=== PATIENT | female | born 1980 | race Hispanic/Latino ===

== ENCOUNTER 2018-06-06 05:36 | Emergency (ER) | payer BC ==
[2018-06-06] MEDS ORDERED: Acetaminophen 500 MG TAB ONE (05:53)
[2018-06-06] MEDS ORDERED: Metoclopramide HCl 10 MG/2 ML VIAL ONE (05:53)
[2018-06-06] MEDS ORDERED: diphenhydrAMINE 50 MG/ML VIAL ONE (05:53)
--- NOTE | 2018-06-06 07:10 | CT ---
CT HEAD NONCONTRAST: Date: 06/06/18 INDICATION: Headache. FINDINGS: There is no intracranial hemorrhage, mass effect, midline shift, or ventriculomegaly. Paranasal sinus es are clear. IMPRESSION: No acute intracranial abnormality. POS: OG
== END 2018-06-06 07:10 | disposition home or self-care (01) ==
LOC: ERS 05:36
DX: H26.9 Unspecified cataract (principal); R51 Headache
CPT/HCPCS: 70450; 96365; 96375; J1200; J2765